=== PATIENT | female | born 1995 | race Caucasian/White ===

== ENCOUNTER 2017-01-03 19:27 | Emergency (ER) | payer OTHER, MEDICARE ==
--- NOTE | 2017-01-03 19:56 | EDM.PDOC ---
ED HPI GENERAL MEDICAL PROBLEM - General Chief Complaint: Back Pain or Injury Stated Complaint: LOWER BACK PAIN Time Seen by Provider: 01/03/17 19:36 - History of Present Illness INITIAL COMMENTS - FREE TEXT/NARRATIVE: HISTORY AND PHYSICAL: History of present illness: The patient is a 21-year-old female history of chronic back pain after an accident and she has had 2 surgical procedures on her lumbar spine with a laminectomy and fusion back in [place] where she lives; she is currently here visiting family and is planning on going back next week and presents with aggravated lumbar back pain which is typical for her. Patient states her doctor at home was changing her medications and she's currently on Neurontin and Mobic. She says that since she's been here she has been more active and has been going up and downstairs due to the apartment she staying at is on the third floor. She has not had any recent trauma and has had no new bowel or bladder disturbances no flank pain no abdominal pain fevers chills nausea or vomiting. The pain does not radiate to her legs and she has no neurosensory changes in her legs. She also has arthritis in her right knee which has been causing her pain but she states that the Mobic is not helping that. She says that she does not have anything for when she gets a flareup. Review of systems: As per history of present illness and below otherwise all systems reviewed and negative. Past medical history: As per history of present illness and as reviewed below otherwise noncontributory. Surgical history: As per history of present illness and as reviewed below otherwise noncontributory. Social history: No reported history of drug or alcohol abuse. Family history: As per history of present illness and as reviewed below otherwise noncontributory. Physical exam: General: Well-developed overweight female who is nontoxic and moves easily in the ED without distress. Vital signs have been noted by me HEENT: Atraumatic, normocephalic, negative for conjunctival pallor or scleral icterus, mucous membranes moist, throat clear, neck supple, nontender, trachea midline. Lungs: Clear to auscultation, breath sounds equal bilaterally, chest nontender. Heart: S1S2, regular in rhythm no overt murmurs Abdomen: Soft, nondistended, nontender. NABS Negative for costovertebral tenderness. Pelvis: Stable nontender. Genitourinary: Deferred. Rectal: Deferred. Extremities: Atraumatic, negative for cords or calf pain. Neurovascular unremarkable. Full range of motion without defects or deficits Neuro: Awake, alert, oriented. Cranial nerves II through XII unremarkable. Cerebellum unremarkable. Motor and sensory unremarkable throughout. Exam nonfocal. Dorsi and plantar flexion is intact bilaterally 5/5 inclusive of the great toe as is inversion and eversion of the feet. Back: There is a well-healed old surgical scar in the midline the lumbar region there is no evidence of any erythema soft tissue swelling or palpable bony deformities here. There is diffuse tenderness on palpation of the paraspinal musculature there is no pain to palpation of the butt Diagnostics: [employer]: norflex Impression: Lumbar back pain acute on chronic Definitive disposition and diagnosis as appropriate pending reevaluation and review of above. lower back Pain Score (Numeric/FACES): 8 - Related Data Allergies Allergy/AdvReac Type Severity Reaction Status Date / Time tramadol Allergy Seizure Verified 01/03/17 19:35 Home Meds: Home Meds Escitalopram [Lexapro] 30 mg PO DAILY 01/03/17 [History] Gabapentin [Neurontin] 300 mg PO BID 01/03/17 [History] QUEtiapine Fumarate [Seroquel] 100 mg PO BEDTIME 01/03/17 [History] Topiramate [Topamax] 200 mg PO BID 01/03/17 [History] cloNIDine HCl [Clonidine HCl ER] 0.2 mg PO BEDTIME 01/03/17 [History] Past Medical History Cardiovascular History: Reports: None Respiratory History: Reports: Asthma Gastrointestinal History: Reports: None Genitourinary History: Reports: None BLOCK CLEANER History: Reports: None Musculoskeletal History: Reports: Back Pain, Chronic, Other (See Below) Other Musculoskeletal History: 2 lumbar back surgeries, 2012 and 2013 Neurological History: Reports: Migraines Psychiatric History: Reports: Anxiety, Bipolar, Depression Endocrine/Metabolic History: Reports: None Hematologic History: Reports: None Dermatologic History: Reports: None - Infectious Disease History Infectious Disease History: Reports: None - Past Surgical History HEENT Surgical History: Reports: Adenoidectomy, Tonsillectomy Female Surgical History: Reports: None Social & Family History - Family History Family Medical History: Noncontributory - Tobacco Use Smoking Status *Q: Current Every Day Smoker Years of Tobacco use: 7 Packs/Tins Daily: 1 - Recreational Drug Use Recreational Drug Use: No ED ROS GENERAL - Review of Systems Review Of Systems: ROS reveals no pertinent complaints other than HPI. ED EXAM, GENERAL - Physical Exam Exam: See Below (See dictation) Course - Vital Signs Last Recorded V/S: Last Vital Signs Temp 36.2 C 01/03/17 19:39 Pulse 102 H 01/03/17 19:39 Resp 16 01/03/17 19:39 BP 128/78 01/03/17 19:39 Pulse Ox 96 01/03/17 19:39 - Orders/Labs/Meds Labs: Laboratory Tests 01/03/17 Range/Units 19:56 Urine HCG, Qual NEGATIVE (NEGATIVE) Meds: Medications Discontinued Medications Generic Name Dose Route Start Last Admin Trade Name Freq PRN Reason Stop Dose Admin Orphenadrine Citrate 60 mg 01/03/17 20:22 Norflex IM 01/03/17 20:23 NOW ONE Departure - Departure Time of Disposition: 20:24 Disposition: Home, Self-Care 01 Condition: good Clinical Impression: Lumbar back pain Qualifiers: Chronicity: chronic Back pain laterality: bilateral Sciatica presence: without sciatica Qualified Code(s): M54.5 - Low back pain - Discharge Information Referrals: PCP,None [Primary Care Provider] - Forms: ED Department Discharge Additional Instructions: The following information is given to patients seen in the emergency department who are being discharged to home. This information is to outline your options for follow-up care. We provide all patients seen in our emergency department with a follow-up referral. The need for follow-up, as well as the timing and circumstances, are variable depending upon the specifics of your emergency department visit. If you don't have a primary care physician on staff, we will provide you with a referral. We always advise you to contact your personal physician following an emergency department visit to inform them of the circumstance of the visit and for follow-up with them and/or the need for any referrals to a consulting specialist. The emergency department will also refer you to a specialist when appropriate. This referral assures that you have the opportunity for followup care with a specialist. All of these measure are taken in an effort to provide you with optimal care, which includes your followup. Under all circumstances we always encourage you to contact your private physician who remains a resource for coordinating your care. When calling for followup care, please make the office aware that this follow-up is from your recent emergency room visit. If for any reason you are refused follow-up, please contact the [facility] emergency department at and ask to speak to the emergency department charge nurse. [facility] Primary care- Internal Medicine and Family [address] [address] Please continue taking your Mobic and Neurontin as previously prescribed by your provider. Please call and followup with your provider in [place] next week or contact one of our clinic doctors for further care and evaluation early next week. Take all medications as prescribed and apply heat or ice to area for symptomatic comfort. Return to ER as needed as discussed
[2017-01-03 21:04] VITALS: BP 115/79
== END 2017-01-03 20:58 | disposition home or self-care (01) ==
LOC: MW.ED 19:27
DX: M54.5 Low back pain (principal); J45.909 Unspecified asthma, uncomplicated; G43.909 Migraine, unspecified, not intractable, without status migrainosus; F41.9 Anxiety disorder, unspecified; F31.9 Bipolar disorder, unspecified; F17.210 Nicotine dependence, cigarettes, uncomplicated; Z79.899 Other long term (current) drug therapy; Z98.890 Other specified postprocedural states; Z88.5 Allergy status to narcotic agent
CPT/HCPCS: 81025; 96372; 99283; J2360